=== PATIENT | female | born 1970 | race Caucasian/White ===

== ENCOUNTER 2018-12-08 09:37 | Observation (INO) ==
[2018-12-08] MEDS ORDERED: *HR* Propofol 200 MG/20 ML VIAL IVP ONE (09:46)
[2018-12-08] MEDS ORDERED: *HR* Midazolam HCl 2 MG/2 ML VIAL ONE (09:46)
[2018-12-08] MEDS ORDERED: *HR* FentaNYL (PF) 100 MCG/2 ML VIAL ONE ×2 (09:46→13:41)
[2018-12-08] MEDS ORDERED: Ketorolac 15 MG/ML VIAL IVP ONE (09:52)
[2018-12-08] MEDS ORDERED: Acetaminophen IV 1,000 MG/100 ML INFUS..BTL IVPB ONE (10:15)
[2018-12-08] MEDS ORDERED: *HR* OxyCODONE Immed Rel 5 MG TABLET PO PRN (10:20)
[2018-12-08] MEDS ORDERED: Ondansetron 4 MG/2 ML VIAL IVP ONE (10:20)
[2018-12-08] MEDS ORDERED: *HR* Meperidine 25 MG/ML SYRINGE IVP PRN (10:20)
[2018-12-08] MEDS ORDERED: CeFAZolin Syr 2,000MG/20 ML 2,000 MG/20 ML SYRINGE IVPB ONE ×2 (10:25→16:00)
[2018-12-08] MEDS ORDERED: MetroNIDAZOLE 500 MG/100 ML 500 MG/100 ML BAG IVPB ONE (10:26)
[2018-12-08] MEDS ORDERED: Scopolamine Patch 1.5 MG PATCH.TD72 TD ONE (10:33)
[2018-12-08] MEDS: Ringers Solution, Lactated 1,000 ML IVC SCH ×2 (10:47→18:03)
[2018-12-08] MEDS ORDERED: *HR* Belladonna Alkaloids/Opium 30 MG RECTAL SUPPOSITORY RC ONE (11:46)
[2018-12-08] MEDS ORDERED: Bupivacaine/EPI 1:200k 0.5%PF 30 ML VIAL ONE (11:46)
[2018-12-08] MEDS ORDERED: *HR* Vasopressin 20 UNIT/ML VIAL ONE (11:47)
[2018-12-08] MEDS ORDERED: methylPREDNISolone 125 MG/2 ML VIAL IVP ONE ×2 (12:06)
[2018-12-08] MEDS ORDERED: Dexamethasone 4 MG/ML VIAL ONE (12:50)
[2018-12-08] MEDS ORDERED: Lidocaine -MPF 2% 2 ML VIAL ONE (13:51)
[2018-12-08] MEDS ORDERED: Lidocaine HCL 4 ML Topical Solution (Laryng-O-Jet Kit Sterile Pak) TP ONE (13:51)
[2018-12-08] MEDS ORDERED: Ketorolac 30 MG/ML VIAL ONE (13:51)
[2018-12-08] MEDS ORDERED: *HR* Rocuronium Bromide 50 MG/5 ML VIAL ONE ×3 (13:51→15:55)
[2018-12-08] MEDS ORDERED: Ondansetron 4 MG/2 ML VIAL ONE ×2 (13:51→15:50)
[2018-12-08] MEDS ORDERED: *HR* PHENYLEPHRINE 1,000 MCG/10 ML SYRINGE IVP ONE (13:59)
[2018-12-08] MEDS ORDERED: *HR* HYDROMORPHONE 2 MG/ML VIAL ONE (16:09)
[2018-12-08] MEDS ORDERED: ROPIVACAINE/PF/NS 0.25% 1 EACH SYRINGE INTRAART ONE (16:25)
[2018-12-08] MEDS: *HR* HYDROmorphone (PF) 1 MG/ML SYRINGE IVP PRN ×2 (17:16→17:29)
[2018-12-08] MEDS: *HR* Promethazine 25 MG/ML VIAL IVP PRN ×2 (17:19→18:39)
[2018-12-08] MEDS ORDERED: *HR* Midazolam HCl 5 MG/5 ML VIAL IVP PRN (17:37)
[2018-12-08] MEDS ORDERED: *HR* Labetalol 20 MG/4 ML SYRINGE IVP PRN (18:11)
[2018-12-08] MEDS ORDERED: *HR* Labetalol 20 MG/4 ML SYRINGE IVP ONE (18:13)
[2018-12-08] MEDS ORDERED: Pregabalin 75 MG CAPSULE PO ONE (18:34)
[2018-12-08 19:02] LABS: Hematocrit 35.3 % (35.3-44.9); Hemoglobin 11.7 g/dL (11.5-15.4)
[2018-12-08] MEDS ORDERED: (Leflunomide [Arava] 10 MG) PO SCH (19:49)
[2018-12-08] MEDS ORDERED: Ondansetron 4 MG/2 ML VIAL IVP PRN (19:49)
[2018-12-08] MEDS ORDERED: Naloxone 0.4 MG/ML INJ IVP PRN (19:49)
[2018-12-08] MEDS ORDERED: *HR* HYDROcodone/Acet 5/325 mg TABLET PO PRN (19:49)
[2018-12-08] MEDS: *HR* HYDROmorphone 2 MG/ML SYRINGE IVP PRN (21:19)
[2018-12-08] MEDS: Ketorolac 30 MG/ML VIAL IVP SCH (22:26)
[2018-12-09] MEDS ORDERED: Ringers Solution, Lactated 1,000 ML ONE (01:11)
[2018-12-09] MEDS: *HR* HYDROmorphone 2 MG/ML SYRINGE IVP PRN ×2 (01:21→09:57)
[2018-12-09] MEDS: Ringers Solution, Lactated 1,000 ML IVC SCH (01:28)
[2018-12-09] MEDS: Ketorolac 30 MG/ML VIAL IVP SCH (05:23)
[2018-12-09 06:47] LABS: Basophils % 0.2 %; Hemoglobin 11.5 g/dL (11.5-15.4); Immature Granulocytes % 0.6 % (0-4); Lymphocytes % 9.9 %; Mean Corpuscular HGB Conc 33.8 g/dL (31.6-35.5); Mean Corpuscular Hemoglobin 31.1 pg (28.0-33.3); Mean Corpuscular Volume 91.9 fL (83.0-100.0); Mean Platelet Volume 10.2 fL (9.4-12.4); Monocytes # 1.9 K/mcL (0.0-1.3); Monocytes % 9.5 %; Neutrophils # 15.8 K/mcL (1.6-8.9); Platelet Count 376 K/mcL (140-400); Red Cell Distribution Width 13.8 % (11.5-14.5); Segmented Neutrophils % 79.8 %; White Blood Count 19.8 K/mcL (4.3-11.1)
[2018-12-09 07:33] LABS: eGFR For African Americans > 60 (> 60); eGFR For Non-African Americans > 60 (> 60)
[2018-12-09] MEDS: *HR* OxyCODONE/APAP 7.5/325 TABLET PO PRN ×3 (08:59→19:47)
[2018-12-09] MEDS: Ibuprofen 600 MG TABLET PO SCH (18:50)
[2018-12-10] MEDS: *HR* OxyCODONE/APAP 7.5/325 TABLET PO PRN ×2 (00:16→04:21)
[2018-12-10] MEDS: Ibuprofen 600 MG TABLET PO SCH ×2 (00:16→06:02)
[2018-12-10 05:30] VITALS: BP 98/67
[2018-12-10] MEDS ORDERED: FLU Vac QV 19-20 (6Month+)/PF 0.5 ML SYRINGE IM ONE (07:51)
[2018-12-10] MEDS ORDERED: ETANERCEPT 25 MG SQ SCH (17:18)
== END 2018-12-10 09:03 | disposition home or self-care (01) ==
LOC: 1NENUPED 09:37 → SAMDAY 09:37 → 1NENUPED 19:48
PROVIDERS: ADMIT Obstetrics & Gynecology; ATTEND Obstetrics & Gynecology
PROC: GYNLAVH (ICD-10-PCS; 2018-12-08 11:00)